=== PATIENT | female | born 1990 | race Two or more races ===

== ENCOUNTER 2020-11-19 18:14 | Emergency (ER) | payer BC ==
[~2020-11-19] VITALS: Ht 165.1 cm; Wt 86.2 kg
[2020-11-19 18:20] VITALS: BP 131/85
== END 2020-11-19 19:40 | disposition home or self-care (01) ==
LOC: ER 18:21
DX: J02.9 Acute pharyngitis, unspecified (principal); Z20.822 Contact with and (suspected) exposure to COVID-19; K58.9 Irritable bowel syndrome, unspecified
CPT/HCPCS: 87426; 99283; C9803